=== PATIENT | male | born 1950 | race Caucasian/White ===

== ENCOUNTER → 2016-09-07 | Outpatient (CLI) | payer OTHER ==
[~2016-09-07] MED LIST: ASCO500T3 PO; AZITTAB2 PO; BENZ100C84 PO; LISI-526 PO; MULTCAP7 PO; MULTTAB5 PO; OMEG10007 PO
[2016-09-07 14:39] LABS: HEMATOCRIT 47.3 % (42-52); MEAN CELL VOLUME 91.5 fL (80-100); MEAN CORPUSCULAR HEMOGLOBIN 31.1 pg (25-34); PLATELET COUNT 291 K/uL (130-400); RED BLOOD COUNT 5.17 M/uL (4.7-6.1); WHITE BLOOD COUNT 7.28 K/uL (4.8-10.8)
[2016-09-07 14:50] LABS: ALT/SGPT 39 U/L (12-78); AST/SGOT 26 U/L (15-37); BLOOD UREA NITROGEN 15 mg/dl (7-18); BUN/CREATININE RATIO 15.6 (10-20); CALCIUM 8.9 mg/dl (8.5-10.1); CARBON DIOXIDE 30 mmol/L (21-32); CHLORIDE 104 mmol/L (98-107); CREATININE 0.99 mg/dl (0.60-1.40); GLUCOSE 107 mg/dl (70-99); POTASSIUM 4.4 mmol/L (3.5-5.1); SODIUM 141 mmol/L (136-145)
[2016-09-07 15:01] LABS: ALB/GLOB RATIO 1.1 (0.9-2); ALKALINE PHOSPHATASE 71 U/L (45-117); CHOLESTEROL 170 mg/dl (0-200); CHOLESTEROL/HDL RATIO 3.9; HDL CHOLESTEROL 44 mg/dl; LDL CHOLESTEROL CALCULATED 85 mg/dl; TRIGLYCERIDES 206 mg/dl (0-150); VERY LOW DENSITY LIPOPROT CALC 41 mg/dl
[2016-09-07 15:04] LABS: ESTIMATED AVERAGE GLUCOSE 117 mg/dl; HA1C FLAG Normal (Normal)
[2016-09-07 15:13] LABS: PROSTATE SPECIFIC ANTIGEN 0.671 ng/ml (0.000-4.000)
[2016-09-07 15:41] LABS: LYME DISEASE AB IGG NEG (NEG); LYME DISEASE AB IGM NEG (NEG)
--- NOTE | 2016-09-13 13:09 | CODING QUERY MEDICAL NECESSITY ---
SUPPORTING DIAGNOSIS NEEDED A supporting diagnosis is required for the test/procedure performed on this patient in order for us to be reimbursed by the patient's insurance. Please provide a supporting diagnosis for the following test/procedure listed below next to the test name along with your signature. *If there is no additional diagnosis for this patient that would support the following test/procedure please document that below next to the test/procedure. Test(s)/Procedure(s) that require a supporting diagnosis: DOS 09/07 * Hba1c DIAGNOSIS: Provider Signature: Date: Thank you Beena Olsen Health Information Management Once completed, please kindly fax back to [phone] For questions please call [phone]
== END | disposition home or self-care (01) ==
LOC: C.LAB1850 12:41
PROVIDERS: ATTEND Family Medicine
DX: Z12.5 Encounter for screening for malignant neoplasm of prostate (principal); I10 Essential (primary) hypertension; E78.5 Hyperlipidemia, unspecified; R73.03 Prediabetes; T14.8 Other injury of unspecified body region; W57.XXXA Bitten or stung by nonvenomous insect and other nonvenomous arthropods, initial encounter

== ENCOUNTER → 2017-04-13 | Outpatient (CLI) | payer OTHER ==
[2017-04-13 12:34] LABS: HEMATOCRIT 46.6 % (42-52); MEAN CORPUSCULAR HGB CONC 35.2 g/dl (32-36); PLATELET COUNT 288 K/uL (130-400); RED BLOOD COUNT 5.12 M/uL (4.7-6.1); WHITE BLOOD COUNT 6.47 K/uL (4.8-10.8)
[2017-04-13 12:43] LABS: ALT/SGPT 39 U/L (12-78); BLOOD UREA NITROGEN 18 mg/dl (7-18); BUN/CREATININE RATIO 19.7 (10-20); CALCIUM 9.1 mg/dl (8.5-10.1); CARBON DIOXIDE 26 mmol/L (21-32); CHLORIDE 107 mmol/L (98-107); CHOLESTEROL 168 mg/dl (0-200); CREATININE 0.91 mg/dl (0.60-1.40); GLUCOSE 110 mg/dl (70-99); POTASSIUM 4.3 mmol/L (3.5-5.1); SODIUM 138 mmol/L (136-145)
[2017-04-13 12:54] LABS: ALB/GLOB RATIO 0.9 (0.9-2); ALKALINE PHOSPHATASE 63 U/L (45-117); AST/SGOT 30 U/L (15-37); CHOLESTEROL/HDL RATIO 4.7; HDL CHOLESTEROL 36 mg/dl; LDL CHOLESTEROL CALCULATED 104 mg/dl; TRIGLYCERIDES 142 mg/dl (0-150); VERY LOW DENSITY LIPOPROT CALC 28 mg/dl
[2017-04-13 13:37] LABS: ESTIMATED AVERAGE GLUCOSE 120 mg/dl; HA1C FLAG Normal (Normal)
== END | disposition home or self-care (01) ==
LOC: C.LABPBG 08:36
PROVIDERS: ATTEND Family Medicine
DX: I10 Essential (primary) hypertension (principal); E78.5 Hyperlipidemia, unspecified; R73.03 Prediabetes

== ENCOUNTER → 2017-06-01 | Outpatient (CLI) | payer OTHER ==
[~2017-06-01] MED LIST changes: +OPTIRAY 320 IV PRN
--- NOTE | 2017-06-01 13:15 | DIAGNOSTIC IMAGING REPORT ---
MRI OF THE BRAIN WITHOUT CONTRAST CLINICAL HISTORY: COORDINATION IMPAIR,DIZZINESS,GAIT DISTURBANCE. COMPARISON STUDY: Head CT March 13, 2015. TECHNIQUE: Utilizing a 1.5 Leonora magnet and dedicated coil, multiplanar, multiecho imaging of the brain was performed without IV contrast. FINDINGS: There are no areas of restricted diffusion. No acute intracranial hemorrhage, midline shift or mass effect is present. Brain volume is normal for age with mild atrophy. Ventricular system is unremarkable. The basilar cisterns are patent. There are no extra-axial collections. Flow-voids for the major intracranial vessels are present. There is no intracranial mass or pathologic enhancement. There are few small white matter T2 hyperintense foci. These likely reflect minimal small vessel disease. No intracranial masses are identified on this unenhanced exam. No fluid is present within the mastoid air cells. There may be a mucous retention cyst within the right maxillary sinus. Orbits are unremarkable. Calvarium is unremarkable. IMPRESSION: Unremarkable unenhanced MRI of the brain. Electronically signed by: Fredi Marroquin M.D. 06/01/2017 1:14 PM Dictated Date/Time: 06/01/2017 1:11 PM
--- NOTE | 2017-06-01 13:29 | DIAGNOSTIC IMAGING REPORT ---
CT ANGIOGRAPHY OF THE NECK WITH CONTRAST CLINICAL HISTORY: Dizziness. Gait disturbance. COMPARISON STUDY: Carotid ultrasound March 13, 2015. Technique: CT angiography of the carotid and vertebral arteries was obtained using [employer] 320 IV and 3D reconstruction on an independent workstation. NASCET criteria was utilized. A dose lowering technique was utilized adhering to the principles of ALARA. CT DOSE: 1094.56 mGycm Findings: The left common carotid artery arises from the brachiocephalic trunk. There is no significant stenosis within the bilateral common carotid or internal carotid arteries. Minimal atherosclerotic plaque is noted, less than expected for age. There is no evidence for dissection within the major vasculature of the neck. The left vertebral artery is dominant and patent. There is persistence of the left posterior cerebral artery. The right vertebral artery is somewhat diminutive but patent. There is no significant stenosis within the bilateral vertebral arteries. No cervical lymphadenopathy is present. Lung apices are clear. IMPRESSION: Unremarkable CTA of the neck. Minimal atherosclerotic plaque without significant stenosis. No dissection. Electronically signed by: Fredi Marroquin M.D. 06/01/2017 1:28 PM Dictated Date/Time: 06/01/2017 1:21 PM
== END | disposition home or self-care (01) ==
LOC: C.MRI 10:36
PROVIDERS: ATTEND Psychiatry & Neurology Neurology
DX: R27.8 Other lack of coordination (principal); R42 Dizziness and giddiness; R26.9 Unspecified abnormalities of gait and mobility

== ENCOUNTER → 2017-06-02 | Outpatient (CLI) | payer OTHER ==
[~2017-06-02] MED LIST changes: -OPTIRAY 320 IV PRN
--- NOTE | 2017-06-06 12:30 | EEG Procedure Note ---
EEG Procedure Note Date of Service Jun 02, 2017. Start / End Times Start Time: 2:02 PM End Time: 2:23 PM Referring Physician Ligia Noel History This is a 67-year-old male with episodes of gait dysfunction and discoordination. EEG for further evaluation of possible seizure etiology. Home Medication List Scheduled Ascorbic Acid (Vitamin C), 500 MG PO Q2D Azithromycin (Tripak) (Zithromax (Tripak)), 250 MG PO UD Fish Oil (Wellington-3), 1 CAP PO Q2D Lisinopril (Prinivil), 30 MG PO QAM Multiple Vitamins W/ Minerals (Centrum), 1 TAB PO QAM Multiple Vitamins W/ Minerals (Eye Vitamins), 1 CAP PO Q2D Scheduled PRN Benzonatate (Tessalon Perles), 100-200 MG PO TID PRN for Cough Description This is a 21 electrode EEG with a single channel dedicated to limited EKG. The electrodes were placed in accordance with the International 10-20 system. At the start of the recording the patient was in an awake state. Background was well organized and composed of symmetric mixed alpha and beta frequencies. There was a symmetric well-formed moderate amplitude 10 Hz posterior dominant rhythm that was reactive to eye opening and closure. Hyperventilation was not done. Intermittent photic stimulation at various frequencies produced no abnormalities. Drowsiness was indicated by loss of muscle artifact and slowing of background rhythm. There was no sleep transients. Interpretation This is a normal awake and drowsy routine EEG. There was no electrographic seizures or epileptiform discharges. Clinical Correlation A normal EEG does not rule out epilepsy if there is a strong clinical suspicion.
== END | disposition home or self-care (01) ==
LOC: C.NEUR 13:50
PROVIDERS: ATTEND Psychiatry & Neurology Neurology
DX: R42 Dizziness and giddiness (principal)

== ENCOUNTER → 2017-06-10 | Day surgery (SDC) | payer OTHER ==
[~2017-06-10] VITALS: Ht 188 cm; Wt 102.0 kg
[2017-06-10 08:26] VITALS: Ht 188 cm; Wt 102.0 kg
--- NOTE | 2017-06-10 11:41 | Procedure Note ---
Procedure Note Date of Service Jun 10, 2017. Procedure Note Procedure performed: Head-up tilt table test Staff refuse driver: Giovanni Casarez MD Indication: The patient is a 67-year-old gentleman with longstanding history of dizziness and lightheadedness. This test is being performed in order to attempt reproduction of his symptoms. Procedure detail: The patient was informed of the risks benefits and alternatives to the intended procedure. He understood such and wished to proceed. He was placed in the supine position on the tilt table. He was secured into place. Continuous monitoring was initiated which included telemetry, intermittent blood pressure and pulse oximetry. After a brief period in the supine position the patient was tilted to 80 degrees. Hemodynamics and symptoms were monitored. At the conclusion of the procedure the patient was returned to the supine position. Hemodynamics and symptoms were allowed to return to normal prior to discharge. The patient tolerated procedure well. There no immediate complications. Findings: Baseline blood pressure was 159/100. Baseline pulse was 86 During the test there was a very slow reduction in blood pressure but no significant change in the patient's pulse There were no symptoms during the test At the time of discharge the patient's blood pressure is 129/81 with a pulse of 82 Impression: Normal head-up tilt table test without evidence of cardioinhibitory or vasodepressor effect. No evidence of POTS or orthostatic intolerance No symptoms during the test
== END | disposition home or self-care (01) ==
LOC: C.CATH 07:57
PROVIDERS: ATTEND Internal Medicine Clinical Cardiac Electrophysiology
DX: R42 Dizziness and giddiness (principal)

== ENCOUNTER → 2017-07-11 | Outpatient (CLI) | payer OTHER ==
[2017-07-13 08:20] LABS: ALBUMIN 4.6 G/DL (3.8-4.8); GAMMA GLOBULIN 1.2 G/DL (0.8-1.7); TOTAL PROTEIN 7.4 G/DL (6.2-8.3)
== END | disposition home or self-care (01) ==
LOC: C.LABPBG 10:24
PROVIDERS: ATTEND Psychiatry & Neurology Neurology
DX: R26.89 Other abnormalities of gait and mobility (principal)

== ENCOUNTER → 2017-11-09 | Outpatient (CLI) | payer OTHER ==
[2017-11-09 12:35] LABS: HEMATOCRIT 47.9 % (42-52); HEMOGLOBIN 16.4 g/dL (14.0-18.0); MEAN CELL VOLUME 93.6 fL (80-100); MEAN CORPUSCULAR HGB CONC 34.2 g/dl (32-36); MEAN PLATELET VOLUME 10.1 fL (7.4-10.4); PLATELET COUNT 294 K/uL (130-400); RED CELL DISTRIBUTION WIDTH SD 44.7 fL (36.4-46.3); WHITE BLOOD COUNT 8.93 K/uL (4.8-10.8)
[2017-11-09 13:05] LABS: ALBUMIN 3.9 gm/dl (3.4-5.0); ALT/SGPT 42 U/L (12-78); AST/SGOT 26 U/L (15-37); BLOOD UREA NITROGEN 17 mg/dl (7-18); CALCIUM 9.2 mg/dl (8.5-10.1); CARBON DIOXIDE 28 mmol/L (21-32); CREATININE 1.01 mg/dl (0.60-1.40); GLUCOSE 118 mg/dl (70-99); POTASSIUM 4.4 mmol/L (3.5-5.1); SODIUM 139 mmol/L (136-145)
[2017-11-09 13:08] LABS: ALKALINE PHOSPHATASE 65 U/L (45-117); CHOLESTEROL 174 mg/dl (0-200); LDL CHOLESTEROL CALCULATED 104 mg/dl; TOTAL PROTEIN 7.9 gm/dl (6.4-8.2)
== END | disposition home or self-care (01) ==
LOC: C.LABPBG 08:05
PROVIDERS: ATTEND Family Medicine
DX: I10 Essential (primary) hypertension (principal); E78.5 Hyperlipidemia, unspecified; R73.03 Prediabetes